=== PATIENT | female | born 1965 | race Caucasian/White ===

== ENCOUNTER 2016-10-13 07:09 | Emergency (ER) | payer BC ==
[2016-10-13 07:35] VITALS: BP 125/84
--- NOTE | 2016-10-13 08:34 | UC ---
Linwood Pinto SooYoung, scribed for Evy Torrez DO on 10/13/16 at 0721 . Headache HPI - HPI Summary HPI Summary: A 50 y/o F presents to [facility] with frontal and posterior KLEIN and stiff neck onset two days ago. Associated sx: subjective fever and chills two nights ago, nausea (yesterday - none currently), sore throat, mild ear pain, eye discharge, mild cough. Denies urinary changes from baseline. Pt denies sx feeling like her previous migraines. She notes having PNA in June 2016, and she wanted to make sure that it's not occurring again. - History Of Current Complaint Stated Complaint: HEADACHE, SORE THROAT Hx Obtained From: Patient ?: No Onset/Duration: Lasting Days, Still Present Initially Headache Was: Moderate Currently Pain Is: Moderate Pain Intensity: 7 Pain Scale Used: 0-10 Numeric Timing: Constant Character: Pressure Location of Headache: Frontal, Occipital Aggravating Factor: Position Change Allevating Factors: Nothing Associated Signs And Symptoms: Positive: Nausea, Sinus Pressure, Fever, Neck Pain. Negative: Dizziness, Vomiting - Allergies/Home Medications Allergies/Adverse Reactions: Allergies Allergy/AdvReac Type Severity Reaction Status Date / Time Amoxicillin [From Augmentin] Allergy Hives Verified 06/05/15 15:49 Clavulanic Acid Allergy Hives Verified 06/05/15 15:49 [From Augmentin] Erythromycin Allergy Hives Verified 05/26/12 09:24 Metronidazole [From Flagyl] Allergy Hives Verified 05/26/12 09:24 SHAKA Allergy Hives Uncoded 05/26/12 09:24 Home Medications: Home Medications Mirabegron (NF) [Myrbetriq (NF)] 10/13/16 [History] Sertraline HCl [Zoloft] 10/13/16 [History] PMH/Surg Hx/FS Hx/Imm Hx Previously Healthy: No Psychological History Of: Reports: Anxiety - on medication for- CAN MAKE PATIENT PANIC AT TIMES, Depression - on medication for - Surgical History Surgical History: Yes Surgery Procedure, Year, and Place: Bilat Oopharectomy, - Family History Known Family History: Positive: Cardiac Disease, Hypertension Negative: Diabetes - Social History Occupation: Employed Full-time Lives: With Family Substance Use Type: None Smoking Status (MU): Never Smoked Tobacco Review of Systems Constitutional: Fever, Chills Skin: Negative Eyes: Drainage ENT: Sore Throat, Ear Ache Respiratory: Cough Cardiovascular: Negative Gastrointestinal: Other - pos: nausea Genitourinary: Negative Motor: Negative Neurovascular: Negative Musculoskeletal: Other: - pos: tight, painful neck Neurological: Headache - sinus Psychological: Negative All Other Systems Reviewed And Are Negative: Yes Physical Exam Triage Information Reviewed: Yes Appearance: Well-Appearing, No Pain Distress, Well-Nourished Vital Signs: Initial Vital Signs Temp 97.8 F 10/13/16 07:15 Pulse 60 10/13/16 07:15 Resp 16 10/13/16 07:15 BP 125/84 10/13/16 07:15 Pulse Ox 99 10/13/16 07:15 Vital Signs Reviewed: Yes Eyes: Positive: Conjunctiva Clear. Negative: Discharge ENT: Positive: Hearing grossly normal, Pharyngeal erythema - mild, TMs normal, Other: - POS: tenderness to palpation to frontal sinus. Negative: Tonsillar swelling, Tonsillar exudate, Trismus, Muffled/hoarse voice Neck exam: Normal Neck: Positive: Supple Respiratory: Positive: Lungs clear, Normal breath sounds, No respiratory distress, No accessory muscle use Cardiovascular: Positive: RRR, No Murmur Musculoskeletal Exam: Normal Neurological: Positive: Alert, Muscle Tone Normal, Other: - A&Ox3, CN II-XII INTACT, SENSORY MOTOR INTACT, REFLEXES INTACT, NO CEREBELLAR SIGNS, FACIAL SYMMETRY Psychological Exam: Normal Psychological: Positive: Age Appropriate Behavior Skin Exam: Normal, Other - warm, dry, nml color Headache Course/Dx - Differential Dx/Diagnosis Differential Diagnosis/HQI/PQRI: Migraine, Sinus Headache, Tension Headache, Viral Syndrome Provider Diagnoses: sinusitis Discharge - Discharge Plan Condition: Stable Disposition: HOME Patient Education Materials: Sinusitis (ED) Forms: *Work Release Referrals: David Jimenez MD [Primary Care Provider] - (Folow up in 5-8 days if not improving.) Additional Instructions: TRY USING THE NETTI POT IN THE MORNINGS DISCUSSED. YOU MUST ALWAYS USE CLEAN WATER. REMEMBER, POSTURE IS AN IMPORTANT FACTOR IN SINUS DRAINAGE. MOVE YOUR NECK, BREATHE. The documentation as recorded by the Linwood hutchins SooYoung accurately reflects the service I personally performed and the decisions made by , Evy Torrez DO.
== END 2016-10-13 08:27 | disposition home or self-care (01) ==
LOC: UCEAST 07:09
DX: J32.9 Chronic sinusitis, unspecified (principal); F41.9 Anxiety disorder, unspecified; F32.9 Major depressive disorder, single episode, unspecified; Z88.3 Allergy status to other anti-infective agents
CPT/HCPCS: 87651; 99211; G0463